=== PATIENT | female | born 1965 | race Two or more races ===

== ENCOUNTER 2025-03-10 15:41 | Emergency (ER) | payer MEDICAID, SELFPAY ==
[2025-03-10 15:42] VITALS: BMI 26.6
[2025-03-10 16:11] VITALS: BP 135/77; PULSE 78; RESP 18; TEMP 36.9; O2SAT 98
--- NOTE | 2025-03-10 16:17 | XR_ITS ---
Examination: Ribs, left, with PA chest, 5 views Technique: Chest PA, RIBS AP, RPO, LPO, AP coned lower ribs 5 views Exam date and time: March 10, 2025, 1618 hrs. Indications: Left rib pain after lifting heavy object today Findings: Normal heart size No pneumothorax Mild osteopenia No acute fracture Impression: No pneumothorax pulmonary contusion or hemothorax No acute rib fractures
--- NOTE | 2025-03-10 16:19 | PD.EDBACK ---
ED Back Injury Pain RME/HPI General Chief Complaint: General Adult/Misc Complain Stated Complaint: LEFT SIDE PAIN AFTER LIFTING HEAVY OBJECT TODAY Time Seen by Provider: 03/10/25 15:44 Source: patient, RN notes reviewed and old records reviewed Arrival date/time: 03/10/25 15:41 Mode of arrival: ambulatory Limitations: no limitations RME / HPI RME / HPI Narrative: 59yof presents to ED for rib pain. Patient states she was lifting something heavy today and felt something pop in her left lower anterior ribs. Reports increased pain with deep breaths and movement. No shortness of breath reported. 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 Home Medications ?Medication ?Instructions ?Recorded ?Confirmed sitagliptin phosphate 50 1 tab PO BID 12/30/22 01/20/23 mg-metformin 1,000 mg tablet (Janumet) atorvastatin 20 mg tablet 20 mg PO QDAY 01/19/23 01/20/23 Previous Rx's ?Medication ?Instructions ?Recorded albuterol sulfate 90 mcg/actuation 2 puff inhalation Q6H PRN 06/23/23 aerosol inhaler shortness of breath or wheezing #8.5 grams ondansetron 4 mg disintegrating 4 mg PO Q8H PRN nausea and 11/03/23 tablet vomiting #30 tabs ibuprofen 600 mg tablet 600 mg PO Q6H PRN pain #20 tabs 03/10/25 lidocaine 5 % topical patch 1 patch topical QDAY #15 ea 03/10/25 methocarbamol 500 mg tablet 1,000 mg (2 x 500 mg) PO Q8H PRN 03/10/25 pain #30 tabs Allergies Allergy/AdvReac Type Severity Reaction Status Date / Time ammonia Allergy Severe Difficulty Verified 03/10/25 15:45 Breathing Review of Systems Review of Systems Systems Reviewed: All systems reviewed, normal except as documented Cardiovascular Cardiovascular: Denies dyspnea Respiratory Respiratory: Denies cough, Denies dyspnea and Reports pain on inspiration Musculoskeletal Comments: Reports rib pain Past Medical History Past Medical History GASTROINTESTINAL: Positive Obesity ENDOCRINE: Positive Diabetes Mellitus Type 2 Surgical History SURGICAL: Positive Section Social History SMOKING STATUS: Never smoker SUBSTANCE USE: does not use ALCOHOL: Never ED Exam General Limitations: Present no limitations General appearance: Present alert and in no apparent distress Head Head exam: Present atraumatic and normocephalic Eye Eye exam: Present normal appearance, PERRL and EOMI ENT ENT exam: Present normal exam and mucous membranes moist Neck Neck exam: Present normal inspection and full ROM Chest Chest inspection: Present symmetric chest wall rise and tenderness (Left lower anterior ribs. No swelling, contusion or ecchymosis) Respiratory Respiratory exam: Present normal lung sounds bilaterally; Absent respiratory distress Cardiovascular Cardiovascular exam: Present regular rate and normal rhythm Abdominal Exam Abdominal exam: Present soft; Absent distention, tenderness, guarding or rebound Extremities Exam Extremities exam: Present normal inspection and full ROM Back Exam Back exam: Present normal inspection and full ROM; Absent tenderness Neurological Exam Neurological exam: Present alert and oriented X3 Psychiatric Psychiatric exam: Present normal affect and normal mood Skin Skin exam: Present warm, dry, intact and normal color Course Quality Measures none Orders Category Date Time Status XR ribs LT min 3V w CXR1V Stat Exams 03/10/25 16:17 Completed CYCLObenzaPRINE [Flexeril] Med 03/10/25 16:17 Discontinued 5 mg PO X1 ONE Ketorolac Inj [Toradol Inj] Med 03/10/25 16:17 Discontinued 30 mg IM X1 ONE Lidocaine 5% Patch Med 03/10/25 16:17 Discontinued 1 patch TOP X1 ONE Vital Signs Vital signs: Vital Signs Temperature 98.5 F 03/10/25 16:11 Pulse Rate 78 03/10/25 16:11 Respiratory Rate 18 03/10/25 16:11 Blood Pressure 135/77 H 03/10/25 16:11 Pulse Oximetry (%) 98 03/10/25 16:11 Oxygen Delivery Method Room Air 03/10/25 16:11 Back Pain / Injury MDM Narrative MDM Narrative:: 59yof presents to ED for rib pain. Patient states she was lifting something heavy today and felt something pop in her left lower anterior ribs. Reports increased pain with deep breaths and movement. No shortness of breath reported. 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 Patient is well-appearing, vitals are stable. No evidence of respiratory distress or hypoxia. Encouraged rest, ice application, pain management prn. Stable for discharge, RTED precautions given. Patient data External records reviewed:: [facility] previous records (11/03/23 ED visit for migraine) Clinical information provided by:: patient Social determinants that could affect healthcare access:: other (specify) (acculturation difficulty) Patient has the following chronic illnesses:: DM, obesity How is presenting disease/condition affected by chronic disease/condition?: uneffected by Evaluation data The following diagnostics were reviewed and interpreted by me:: radiology exam(s) Lab and/or radiology exams considered but not ordered:: none Interpretation Summary: Rib xrays: No fracture or PTX per my read Medications / Prescriptions Medications or Prescriptions considered but not ordered:: no antibiotics recommended at this time Medication administrations:: Medication Administration History Discontinued Medications Cyclobenzaprine HCl (Cyclobenzaprine 5 Mg Tablet) 5 mg PO X1 ONE Stop: 03/10/25 16:18 Last Admin: 03/10/25 19:03 Dose: 5 mg Documented By: OA Ketorolac Tromethamine (Ketorolac Inj 30 Mg/Ml Vial) 30 mg IM X1 ONE Stop: 03/10/25 16:18 Last Admin: 03/10/25 19:03 Dose: 30 mg Documented By: OA Lidocaine (Lidocaine 5% 1 Patch) 1 patch TOP X1 ONE Stop: 03/10/25 16:18 Last Admin: 03/10/25 19:04 Dose: Not Given Documented By: OA Non-Admin Reason: Patient Refused above medications administered in ED Consultations Consultation(s) initiated? (list below): No Diagnosis Differential diagnosis back pain/injury: other (fracture, contusion, strain, msk pain) Most likely diagnosis given after review of the tests above:: thoracic strain/rib pain Admission Indicated Admission indicated?: not indicated Admission Request Was there a request for admission?: No Disposition Plan Disposition Plan: Discharge Discharge Attestation Discharge Attestation: The patient and all family members were given an opportunity to ask questions and understood the discharge instructions. Discharge instructions specifically effects, indications for sooner follow up or return to the emergency department, and the expected course of current diagnosis. Patient condition: Stable Discharge Plan Plan Patient Disposition: HOME (Self Care) Patient condition on transfer: Stable Prescriptions/Referrals Prescriptions/Med Rec: New ibuprofen 600 mg tablet 600 mg PO Q6H PRN (Reason: pain) Qty: 20 0RF methocarbamol 500 mg tablet 1,000 mg PO Q8H PRN (Reason: pain) Qty: 30 0RF lidocaine 5 % adhesive patch,medicated 1 patch topical QDAY Qty: 15 0RF Rx Instructions: leave on most painful area for up to 12 hrs No Action Janumet 50-1,000 mg tablet 1 tab PO BID ondansetron 4 mg tablet,disintegrating 4 mg PO Q8H PRN (Reason: nausea and vomiting) Qty: 30 0RF atorvastatin 20 mg tablet 20 mg PO QDAY albuterol sulfate 90 mcg/actuation HFA aerosol inhaler 2 puff inhalation Q6H PRN (Reason: shortness of breath or wheezing) Qty: 8.5 0RF Referrals: Amadou Pereira MD [Primary Care Provider, Family Practice] - In 1 week Problem List Clinical Impression: Rib pain on left side Patient/Caregiver Discharge Instructions Education Materials: Costochondritis Print Language: Uzbek Stand Alone Forms: Teresita Award Info., Patient Portal Info Letter PA/[employer]IST Supervising Physician PA/[employer]IST Supervising Physician: Michael
[2025-03-10] MEDS: KETOROLAC INJ 30 MG/ML VIAL IM (19:03)
== END 2025-03-10 19:19 | disposition home or self-care (01) ==
PROVIDERS: Emergency Provider Emergency Medicine; PCP Family Medicine
DX: R07.81 Pleurodynia (principal)
CPT/HCPCS: 71101; 96372; 99283; J1885; A9270